=== PATIENT | male | born 1940 | race Caucasian/White ===

== ENCOUNTER → 2016-11-05 | Outpatient (CLI) | payer MEDICARE, OTHER ==
[~2016-11-05] VITALS: Ht 177.8 cm; Wt 89.8 kg
[~2016-11-05] MED LIST: ASPI325T PO; LEVO88TA3 PO; LIPI20TA PO; MIDAZOLAM INJ 2 MG/2 ML VIAL (J2250) As Ordered ONE; NS 1,000 ML IV SCH; PLAV75TA38 PO; fentaNYL 100 MCG/2 ML INJECTION (J3010) As Ordered ONE
--- NOTE | 2016-11-05 08:56 | ROOR ---
Patient Name: Tiago Simmons Procedure Date: 11/05/2016 8:32 AM Date of : 1940 Age: 76 Room: [facility] Gender: Male Note Status: Finalized Procedure: Colonoscopy Indications: High risk colon cancer surveillance: Personal history of colonic polyps, Last colonoscopy: October 2013 Providers: Van BABIN MD Referring MD: Lidia Tipton DO Requesting Provider: Medicines: Fentanyl 100 micrograms IV, Midazolam 4 mg IV Complications: No immediate complications. Procedure: Pre-Anesthesia Assessment: - The heart rate, respiratory rate, oxygen saturations, blood pressure, adequacy of pulmonary ventilation, and response to care were monitored throughout the procedure. The Colonoscope was introduced through the anus and advanced to the cecum, identified by appendiceal orifice and ileocecal valve. The colonoscopy was performed without difficulty. The patient tolerated the procedure well. The quality of the bowel preparation was adequate. Findings: The perianal and digital rectal examinations were normal. (EXAM: Complete, PREP:Adequate) The entire examined colon appeared normal on direct and retroflexion views. Impression: - (EXAM: Complete, PREP:Adequate) - The entire examined colon is normal on direct and retroflexion views. - No specimens collected. Recommendation: - Repeat colonoscopy in 5 years for adenoma surveillance. Van Babin MD Van BABIN MD 11/05/2016 8:55:37 AM This report has been signed electronically. Number of Addenda: 0 Note Initiated On: 11/05/2016 8:32 AM Estimated Blood Loss: Estimated blood loss: none.
[2016-11-05 09:30] VITALS: BP 151/74
== END | disposition home or self-care (01) ==
LOC: M OPP 07:02
PROVIDERS: ATTEND Internal Medicine Gastroenterology
DX: Z12.11 Encounter for screening for malignant neoplasm of colon (principal); Z86.010 Personal history of colon polyps; E07.9 Disorder of thyroid, unspecified
CPT/HCPCS: G0105; J2250; J3010

== ENCOUNTER → 2016-12-05 | Outpatient (REF) | payer MEDICARE ==
[~2016-12-05] MED LIST changes: -MIDAZOLAM INJ 2 MG/2 ML VIAL (J2250) As Ordered ONE; -NS 1,000 ML IV SCH; -fentaNYL 100 MCG/2 ML INJECTION (J3010) As Ordered ONE
== END ==
LOC: M SMT 17:13
PROVIDERS: ATTEND Nurse Practitioner Family
DX: R35.0 Frequency of micturition (principal)
CPT/HCPCS: 51798; 81001; 87086; G0463

== ENCOUNTER → 2017-07-18 | Outpatient (CLI) | payer MEDICARE, OTHER ==
[~2017-07-18] MED LIST changes: +PLAV1TAB2 PO; -PLAV75TA38 PO
--- NOTE | 2017-07-18 12:46 | REP ---
DUPLEX CAROTID SONOGRAPHY: HISTORY: Occlusion or stenosis bilateral carotid arteries. FINDINGS: Antegrade flow is observed in the left vertebral artery. Flow could not be confirmed in the right vertebral artery. RIGHT CAROTID: The right common carotid artery shows mild diffuse intimal thickening. There is mild mixed plaquing in the right carotid bulb and proximal ECA. A patent right ICA stent is seen. Velocity Chart Right Carotid: PSV EDV Right CCA 85 cm/s Right ICA 66 cm/s 29 cm/s Right ECA 63 cm/s Right ICA/CCA ratio normal 1.1. IMPRESSION: 16-49% category narrowing in the proximal ICA. Patent right ICA stent noted. LEFT CAROTID: The left common carotid artery shows mild diffuse intimal thickening. There is mixed plaquing in the bulb and proximal ICA on the left side. Significant plaquing is seen in the proximal ICA with stenosis. Velocity Chart Left Carotid: PSV EDV Left CCA 61 cm/s Left ICA 208 cm/s 64 cm/s Left ECA 68 cm/s Left ICA/CCA ratio elevated 2.9 IMPRESSION: 80-99% category narrowing of the left proximal ICA probably near the lower end of this range. Patent left ICA stent with moderate plaquing and stenosis in the proximal ICA. Systolic velocities have not increased significantly since the prior study in the left carotid done February 27, 2016. Signed by Claudy Larios MD 07/18/2017 05:09 P
== END ==
LOC: M RAD 11:14
DX: I65.23 Occlusion and stenosis of bilateral carotid arteries (principal)

== ENCOUNTER → 2018-02-24 | Outpatient (CLI) | payer MEDICARE, OTHER | LOC: M RAD 10:26 | DX: I65.23 Occlusion and stenosis of bilateral carotid arteries (principal) | CPT/HCPCS: 93880 ==

== ENCOUNTER → 2018-08-01 | Outpatient (CLI) | payer MEDICARE, OTHER ==
[2018-08-01 14:58] LABS: CREATININE FOR GFR 1.42 MG/DL (0.70-1.30); GLOMERULAR FILTRATION RATE 51.5 (>42)
[2018-08-01 14:58] LABS: BLOOD UREA NITROGEN 30 MG/DL (7-18)
== END ==
LOC: M LAB 13:48
DX: M54.5 Low back pain (principal)
CPT/HCPCS: 82565

== ENCOUNTER → 2018-08-11 | Outpatient (CLI) | payer MEDICARE, OTHER ==
[~2018-08-11] MED LIST changes: -ASPI325T PO; -LEVO88TA3 PO; -LIPI20TA PO; -PLAV1TAB2 PO; +PROHANCE 279.3MG/ML 5ML VIAL (A9576) As Ordered
== END ==
LOC: M RAD 16:35
DX: M51.26 Other intervertebral disc displacement, lumbar region (principal); Z85.118 Personal history of other malignant neoplasm of bronchus and lung; M48.061 Spinal stenosis, lumbar region without neurogenic claudication
CPT/HCPCS: A9576

== ENCOUNTER → 2018-08-27 | Outpatient (CLI) | payer MEDICARE, OTHER | LOC: M RAD 14:16 | DX: I65.23 Occlusion and stenosis of bilateral carotid arteries (principal) | CPT/HCPCS: 93880 ==

== ENCOUNTER → 2019-02-18 | Outpatient (CLI) | payer MEDICARE, OTHER ==
[~2019-02-18] MED LIST changes: +ASPI-1 PO; +E-Z-GAS II EFFERVESCENT PACKET (SODIUM BICARB./CITRIC ACID/SIMETHICONE) As Ordered ONE; +E-Z-HD 98% w/w 340GM SUSP BTL As Ordered ONE; +E-Z-PAQUE 96% w/w SUSP 176GM BTL As Ordered ONE; +LEVO88TA3 PO; +LIPI20TA PO; +PLAV1TAB2 PO; -PROHANCE 279.3MG/ML 5ML VIAL (A9576) As Ordered
--- NOTE | 2019-02-18 16:38 | REP ---
Examination Requested: Esophagram Barium Swallow Reason For Exam/Comment: Esophageal dysphasia Esophagram: The procedure was performed by TANNER Cruz, under the direct supervision of Dr. Larios. The images were reviewed with Dr. Larios. A single PA chest x-ray is submitted as a ball thread machine tender film. Demonstrating a postsurgical linear density in the right servando hilar area, corresponding to a previous area of abnormality on the chest x-ray dated 01/26/2016. Lateral and AP projections of the oral and pharyngeal cavity demonstrates multiple surgical clips as well as bilateral carotid stents. Liquid barium was given in the erect position. 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 Distal to the stricture esophageal transport is efficient and there is no esophagitis or mucosal ring noted. There is no hiatal hernia noted. Gastroesophageal reflux is not appreciated throughout the course of this exam. Impression: 1. 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 0.7 minutes of fluoroscopy time was utilized for this procedure. Reviewed by TANNER Rai 02/18/2019 03:52 P Electronically Signed by Claudy Larios MD 02/18/2019 04:28 P
== END ==
LOC: M RAD 09:14
PROVIDERS: ATTEND Specialist
DX: R13.10 Dysphagia, unspecified (principal); K22.2 Esophageal obstruction

== ENCOUNTER → 2019-08-25 | Outpatient (CLI) | payer MEDICARE, OTHER ==
[~2019-08-25] MED LIST changes: -E-Z-GAS II EFFERVESCENT PACKET (SODIUM BICARB./CITRIC ACID/SIMETHICONE) As Ordered ONE; -E-Z-HD 98% w/w 340GM SUSP BTL As Ordered ONE; -E-Z-PAQUE 96% w/w SUSP 176GM BTL As Ordered ONE
--- NOTE | 2019-08-25 14:45 | REP ---
CAROTID ULTRASOUND: Real-time ultrasound evaluation and duplex Doppler interrogation of the bilateral extracranial carotid vasculature is performed. Patient has bilateral stents in the internal carotid arteries. There is narrowing and elevated peak systolic velocity in the left internal carotid artery with elevated ICA to CC ratio, consistent with stenosis, likely greater than 70% given the degree of elevation of the peak systolic velocity and ratio. There is no evidence of hemodynamically significant stenosis of the right internal carotid artery with luminal narrowing less than 50%. There is normal direction of flow in the left vertebral artery. Right vertebral artery is not visualized. RIGHT LEFT Peak systolic velocity ICA 95.3 cm/s 314.0 cm/s End diastolic velocity ICA 28.7 cm/s 78.0 cm/s Peak systolic velocity CCA 112.0 cm/s 91.6 cm/s Peak systolic velocity ECA 127.0 cm/s 135.0 cm/s ICA/CCA ratio 1.05 4.56 IMPRESSION: Bilateral ICA stents with luminal narrowing in the right ICA less than 50% and findings suggestive of stenosis in the left ICA greater than 70%. Electronically Signed by Gama Zelaya MD 08/26/2019 10:33 A
== END ==
LOC: M RAD 12:59
PROVIDERS: ATTEND Neurological Surgery
DX: I65.23 Occlusion and stenosis of bilateral carotid arteries (principal); Z95.828 Presence of other vascular implants and grafts

== ENCOUNTER → 2019-09-09 | Outpatient (CLI) | payer MEDICARE, OTHER ==
[2019-09-09 13:06] LABS: CREATININE FOR GFR 1.42 MG/DL (0.70-1.30); GLOMERULAR FILTRATION RATE 51.3 (>42)
== END ==
LOC: M LAB 11:36
PROVIDERS: ATTEND Surgery Vascular Surgery
DX: I65.23 Occlusion and stenosis of bilateral carotid arteries (principal)

== ENCOUNTER → 2019-09-14 | Outpatient (CLI) | payer MEDICARE, OTHER ==
--- NOTE | 2019-09-14 12:53 | REP ---
Extracranial MRA: 09/14/2019. Indication: Carotid stenosis. Comparison: CTA dated 01/08/2014. Technique: [id number] imaging of the extracranial carotid and vertebral arteries were performed with and without Gadolinium. Findings: Evaluation of the internal carotid arteries is suboptimal secondary to susceptibility artifact associated with the carotid stents. The right vertebral artery is occluded. The left vertebral artery is patent without significant stenosis. The great vessels originate in expected anatomic fashion from the aortic arch. Impression: Suboptimal evaluation of the internal carotid arteries. Conventional angiography is recommended. Occluded right vertebral artery. Electronically Signed by Jaun Merritt DO 09/14/2019 12:45 P
== END ==
LOC: M RAD 10:49
PROVIDERS: ATTEND Nurse Practitioner
DX: I65.23 Occlusion and stenosis of bilateral carotid arteries (principal); N28.1 Cyst of kidney, acquired; N18.3 Chronic kidney disease, stage 3 (moderate); N40.1 Benign prostatic hyperplasia with lower urinary tract symptoms
CPT/HCPCS: 70549; 76775; 76857; A9576

== ENCOUNTER → 2019-09-14 | Outpatient (CLI) | payer MEDICARE, OTHER ==
[~2019-09-14] MED LIST changes: +PROHANCE 279.3MG/ML 15ML VIAL (A9576) As Ordered ONE
--- NOTE | 2019-09-14 13:50 | REP ---
RENAL ULTRASOUND: Real-time sonographic of the kidneys performed. Kidneys are normal in size and echotexture, right kidney measuring 10.0 x 6.0 x 4.9 cm and left kidney 10.5 x 3.9 x 5.0 cm. No hydronephrosis is seen bilaterally. There is a 1 cm cyst in the mid right kidney medially. No other abnormalities are seen. IMPRESSION: No hydronephrosis. 1 cm cyst mid right kidney. Electronically Signed by Gama Zelaya MD 09/14/2019 03:54 P
--- NOTE | 2019-09-14 13:54 | REP ---
BLADDER ULTRASOUND: Real-time sonographic evaluation of the bladder performed. The bladder measures 10.4 x 9.7 x 7.2 cm for a total volume of 474 mL. No mass or calculus is seen. There are bilateral ureteral jets in the urinary bladder with Doppler color evaluation. Prostate is enlarged and measures 5.5 x 5.1 x 5.5 cm for a total volume of 81 mL. Postvoid residual is 61 mL, which is 13% of the original volume. IMPRESSION: No bladder mass or calculus. Postvoid residual 13% as discussed above. Enlarged prostate. Electronically Signed by Gama Zelaya MD 09/14/2019 03:54 P
== END ==
LOC: M RAD 10:55
PROVIDERS: ATTEND Internal Medicine Nephrology
DX: N28.1 Cyst of kidney, acquired (principal); N18.3 Chronic kidney disease, stage 3 (moderate); N40.1 Benign prostatic hyperplasia with lower urinary tract symptoms

== ENCOUNTER → 2019-10-02 | Outpatient (CLI) | payer MEDICARE, OTHER ==
[~2019-10-02] MED LIST changes: -PROHANCE 279.3MG/ML 15ML VIAL (A9576) As Ordered ONE
--- NOTE | 2019-10-02 12:47 | REP ---
Clinical: Preoperative assessment. Technique: PA and lateral. Comparison: 06/19/2016. Findings: Area of linear scarring involving the right upper lobe is again noted and similar to 06/19/2016. Mediastinum and cardiac silhouette are within normal limits. Remainder of lung guevara are clear. No acute consolidation, effusion, or pneumothorax. Skeletal structures are intact. Impression: Chronic linear scarring in the right upper lung zone. No obvious acute process. Electronically Signed by Erik Cifuentes MD 10/02/2019 12:39 P
[2019-10-02 12:58] LABS: APPEARANCE, URINE CLEAR (CLEAR); BACTERIA, URINE AUTO NEGATIVE (NEGATIVE); BILIRUBIN, URINE AUTO NEGATIVE (NEGATIVE); BLOOD, URINE BLOOD 1+ (NEGATIVE); COLOR, URINE STRAW (YELLOW); GLUCOSE, URINE (UA) AUTO NEGATIVE (NEGATIVE); KETONE, URINE AUTO NEGATIVE (NEGATIVE); LEUKOCYTE ESTERASE, URINE AUTO NEGATIVE (NEGATIVE); NITRITE, URINE AUTO NEGATIVE (NEGATIVE); PROTEIN, URINE AUTO NEGATIVE (NEGATIVE); RBC, URINE AUTO 1 /HPF (0-3); SPECIFIC GRAVITY URINE AUTO 1.011 (1.002-1.035); SQUAMOUS EPITHELIAL CELL UR AU 0 /HPF (0-6); UROBILINOGEN, URINE AUTO 0.2 mg/dL (0.0-2.0); WBC, URINE AUTO 1 /HPF (0-3)
[2019-10-02 12:59] LABS: BASO % 0.5 % (0.0-1.0); EOS # 0.2 10^3/uL (0.0-0.5); EOS % 2.8 % (0.0-3.0); HEMATOCRIT 44.7 % (42.0-52.0); HEMOGLOBIN 14.2 g/dl (13.5-17.5); LYMPH # 1.7 10^3/uL (1.5-5.0); LYMPH % 29.3 % (24.0-44.0); MEAN CORPUSCULAR HGB CONC 31.8 g/dl (32.0-36.5); MEAN CORPUSCULAR VOLUME 91.4 fl (80.0-96.0); MONO # 0.6 10^3/uL (0.0-0.8); MONO % 10.8 % (0.0-5.0); NEUTROPHILS # 3.2 10^3/uL (1.5-8.5); NEUTROPHILS % 56.4 % (36.0-66.0); PLATELET COUNT, AUTOMATED 230 10^3/uL (150-450); RED BLOOD COUNT 4.89 10^6/uL (4.30-6.10); WHITE BLOOD COUNT 5.7 10^3/uL (4.0-10.0)
[2019-10-02 13:10] LABS: INR 1.06; PROTHROMBIN TIME 13.5 SECONDS (11.8-14.0)
[2019-10-02 13:11] LABS: PARTIAL THROMBOPLASTIN TIME 29.7 SECONDS (25.0-38.4)
[2019-10-02 13:21] LABS: ALBUMIN 3.6 GM/DL (3.2-5.2); BILIRUBIN,TOTAL 0.6 MG/DL (0.2-1.0); CALCIUM LEVEL 8.8 MG/DL (8.8-10.2); CREATININE FOR GFR 1.46 MG/DL (0.70-1.30); GLOMERULAR FILTRATION RATE 49.7 (>42); POTASSIUM SERUM 4.5 MEQ/L (3.5-5.1); TOTAL PROTEIN 6.9 GM/DL (6.4-8.2)
--- NOTE | 2019-10-05 | ECGEPIP ---
[facility] Test Date: 2019-10-02 Pat Name: LUIS ALBERTO PASTOR Department: Room: - Gender: Male Tool Room Attendant: : 1940 Requested By: Patricio Sequeira Order Number: [id number] Reading MD: Van Steinberg Measurements Intervals Harrison Rate: 62 P: 64 DE: 221 QRS: -13 QRSD: 140 T: 57 QT: 412 QTc: 420 Interpretive Statements SINUS RHYTHM WITH FIRST DEGREE AV BLOCK LEFT BUNDLE BRANCH BLOCK Similar to tracing done 06-19-16 Electronically Signed on 10-04-2019 23:59:30 EST by Van Steinberg
== END ==
LOC: M LAB 12:02
PROVIDERS: ATTEND Neurological Surgery
DX: Z01.818 Encounter for other preprocedural examination (principal); I65.23 Occlusion and stenosis of bilateral carotid arteries; R91.8 Other nonspecific abnormal finding of lung field; Z79.899 Other long term (current) drug therapy

== ENCOUNTER → 2019-12-10 | Outpatient (REF) | payer MEDICARE, OTHER ==
[2019-12-10 17:50] LABS: FERRITIN 18 NG/ML (26-388); IRON (FE) 87 UG/DL (65-175); PERCENT SATURATION 20.6 % (19.7-50.0); TOTAL IRON BINDING CAPACITY 422 UG/DL (250-450)
[2019-12-10 17:59] LABS: FOLATE > 24.0 NG/ML; VITAMIN B12 LEVEL > 2000 PG/ML
== END ==
LOC: M LAB REF 16:52
PROVIDERS: ATTEND Internal Medicine Nephrology
DX: D64.9 Anemia, unspecified (principal)

== ENCOUNTER 2019-12-30 12:33 | Outpatient (CLI) | payer MEDICARE, OTHER ==
[~2019-12-30] VITALS: Ht 177.8 cm; Wt 92.1 kg
[2019-12-30 12:25] VITALS: BP 140/64
[2019-12-30] MEDS ORDERED: NS 1,000 ML IV SCH (13:00)
[2019-12-30] MEDS ORDERED: diphenhydrAMINE INJ 50MG/ML VIAL (J1200) IV PRN (13:00)
[2019-12-30] MEDS ORDERED: ALBUTEROL SULFATE 2.5 MG/0.5 ML INH NEB SOLN INH PRN (13:00)
[2019-12-30] MEDS ORDERED: EPINEPHrine INJ 1 MG/ML 1ML VIAL IM PRN (13:00)
[2019-12-30] MEDS ORDERED: methylPREDNISolone INJ 125 MG/2 ML VIAL (J2930) IV PRN (13:00)
[2019-12-30] MEDS ORDERED: FERRIC CARBOXYMALTOSE INJ 750 MG in NS 250 ML IV ONE (13:30)
[2019-12-30 14:30] VITALS: BP 153/69
== END 2019-12-30 14:30 | disposition home or self-care (01) ==
LOC: M INFU 12:33
PROVIDERS: ATTEND Internal Medicine Nephrology
DX: D50.9 Iron deficiency anemia, unspecified (principal)
CPT/HCPCS: 96361; 96365; J1439

== ENCOUNTER 2020-01-06 12:32 | Outpatient (CLI) | payer MEDICARE, OTHER ==
[~2020-01-06] VITALS: Ht 177.8 cm; Wt 92.3 kg
[2020-01-06] MEDS ORDERED: diphenhydrAMINE INJ 50MG/ML VIAL (J1200) IV PRN (12:45)
[2020-01-06] MEDS ORDERED: ALBUTEROL SULFATE 2.5 MG/0.5 ML INH NEB SOLN INH PRN (12:45)
[2020-01-06] MEDS ORDERED: NS 1,000 ML IV SCH (12:45)
[2020-01-06] MEDS ORDERED: methylPREDNISolone INJ 125 MG/2 ML VIAL (J2930) IV PRN (12:45)
[2020-01-06] MEDS ORDERED: EPINEPHrine INJ 1 MG/ML 1ML VIAL IM PRN (12:45)
[2020-01-06] MEDS ORDERED: methylPREDNISolone INJ 125 MG/2 ML VIAL (J2930) IV ONE (12:45)
[2020-01-06 12:54] VITALS: BP 148/72
[2020-01-06] MEDS ORDERED: FERRIC CARBOXYMALTOSE INJ 750 MG in NS 250 ML IV ONE (13:00)
[2020-01-06 14:32] VITALS: BP 156/88
== END 2020-01-06 14:30 | disposition home or self-care (01) ==
LOC: M INFU 12:32
PROVIDERS: ATTEND Internal Medicine Nephrology
DX: D50.9 Iron deficiency anemia, unspecified (principal)
CPT/HCPCS: 96365; J1439

== ENCOUNTER → 2020-03-31 | Outpatient (CLI) | payer MEDICARE, OTHER ==
--- NOTE | 2020-03-31 16:38 | REP ---
DUPLEX CAROTID SONOGRAPHY: HISTORY: Status post internal carotid artery stents times 15 years. Comparison study August 25, 2019. Comparison MR angiography of the carotids September 14, 2019. FINDINGS: Flow could not be identified in the right vertebral artery. Normal antegrade flow is seen in the left vertebral artery. RIGHT CAROTID: There is diffuse intimal thickening and mild plaquing in the distal CCA on the right. Circumferential mixed plaquing is seen in the bulb and proximal ICA. Heavily calcified plaque is seen in the proximal stent. This obscures visualization of color flow. It is difficult to completely exclude a stent stenosis but the stent is patent. Velocity Chart Right Carotid: PSV EDV Right CCA 100 cm/s Right ICA 76 cm/s 24 cm/s Right ECA 106 cm/s Right ICA/CCA ratio normal 0.8. IMPRESSION: Right ICA stent is patent. Less than 50% stenosis by velocity criteria. Fairly extensive calcific plaquing. LEFT CAROTID: There is diffuse intimal thickening and some plaquing in the distal CCA on the left. There is heavy calcific plaquing in the bulb. There is diffuse intimal thickening throughout the stent which is patent. Peak systolic and end diastolic velocities are elevated in the stent in the ICA on the left similar to the prior study. Velocity Chart Left Carotid: PSV EDV Left CCA PSV 75 cm/s Left ICA 228 cm/s 63 cm/s Left ECA 69 cm/s Left ICA/CCA ratio elevated 3.05. Velocities have not increased since the prior study. IMPRESSION: Greater than 70% category narrowing in the left ICA stent by Doppler velocity criteria. Velocities are unchanged from most recent prior study. Electronically Signed by Claudy Larios MD 03/31/2020 05:00 P
== END ==
LOC: M RAD 14:14
PROVIDERS: ATTEND Neurological Surgery
DX: I65.03 Occlusion and stenosis of bilateral vertebral arteries (principal)

== ENCOUNTER → 2020-06-27 | Outpatient (CLI) | payer MEDICARE, OTHER ==
--- NOTE | 2020-07-07 09:17 | REP ---
CAROTID ULTRASOUND HISTORY: Occlusion and stenosis. COMPARISON: 03/31/2020 FINDINGS: Real-time ultrasound evaluation and duplex Doppler interrogation of the extracranial carotid vasculature was performed bilaterally. There are bilateral internal carotid artery stents again noted. Calcified plaque is seen in the proximal right internal carotid artery. The shadowing limits evaluation of this region, and significant stenosis cannot completely be excluded, although normal flow velocities are visualized in the right internal carotid artery. There is significant plaquing and narrowing in the left internal carotid artery, and once again there is elevated peak systolic velocity and ICA to CCA ratio suggesting stenosis in the range of 60-79%, as seen on prior study. There is significant intimal thickening and plaquing in the bilateral common carotid arteries and carotid bulbs. There is normal direction of flow in the left vertebral artery. The right vertebral artery could not be visualized. RIGHT cm/s LEFT cm/s Peak systolic velocity ICA 57.6 243.3 End-diastolic velocity ICA 16.2 69.1 Peak systolic velocity CCA 87.9 67.0 Peak systolic velocity ECA 139.7 81.4 ICA to CCA ratio 0.66 3.63 IMPRESSION: Similar findings to prior exam as discussed in detail above. Bilateral ICA stents noted with intraluminal plaquing and narrowing. Calcific plaque in the proximal right internal carotid artery limits evaluation for underlying stenosis, although normal flow velocities are documented. There are again findings compatible with stenosis of the left ICA 60-79%. MTDD
== END ==
LOC: M RAD 12:12
PROVIDERS: ATTEND Neurological Surgery
DX: I65.23 Occlusion and stenosis of bilateral carotid arteries (principal); Z95.828 Presence of other vascular implants and grafts

== ENCOUNTER → 2020-11-30 | Outpatient (CLI) | payer MEDICARE, OTHER | LOC: M LABSMTC 12:13 | PROVIDERS: ATTEND Otolaryngology | DX: R13.12 Dysphagia, oropharyngeal phase (principal); Z11.52 Encounter for screening for COVID-19 ==

== ENCOUNTER → 2021-01-04 | Outpatient (REF) | payer MEDICARE, OTHER ==
[2021-01-04 18:11] LABS: PERCENT SATURATION 15.6 % (19.7-50.0)
== END ==
LOC: M LAB REF 16:41
PROVIDERS: ATTEND Internal Medicine Nephrology
DX: D50.9 Iron deficiency anemia, unspecified (principal)

== ENCOUNTER 2021-01-13 08:26 | Outpatient (CLI) | payer MEDICARE, OTHER ==
[~2021-01-13] VITALS: Ht 177.8 cm; Wt 92.3 kg
[~2021-01-13 08:26] MED LIST changes: +ALBUTEROL SULFATE 2.5 MG/0.5 ML INH NEB SOLN INH PRN; +EPINEPHrine INJ 1 MG/ML 1ML AMP IM PRN; +FERRIC CARBOXYMALTOSE INJ 750 MG, VIAL MATE ADAPTER 1 EACH in NS 250 ML IV ONE; +NS 1,000 ML IV SCH; +diphenhydrAMINE 50MG/ML VIAL (J1200) IV ONE; +diphenhydrAMINE 50MG/ML VIAL (J1200) IV PRN; +methylPREDNISolone 125MG 2ML VIAL IV PRN
[2021-01-13 09:01] VITALS: BP 106/55
[2021-01-13 10:03] VITALS: BP 160/72
== END 2021-01-13 10:00 | disposition home or self-care (01) ==
LOC: M INFU 08:26
PROVIDERS: ATTEND Internal Medicine Nephrology
DX: D50.9 Iron deficiency anemia, unspecified (principal)
CPT/HCPCS: 96365; J1439

== ENCOUNTER → 2021-01-18 | Outpatient (CLI) | payer MEDICARE, OTHER ==
[~2021-01-18] MED LIST changes: -ALBUTEROL SULFATE 2.5 MG/0.5 ML INH NEB SOLN INH PRN; -EPINEPHrine INJ 1 MG/ML 1ML AMP IM PRN; -FERRIC CARBOXYMALTOSE INJ 750 MG, VIAL MATE ADAPTER 1 EACH in NS 250 ML IV ONE; -NS 1,000 ML IV SCH; -diphenhydrAMINE 50MG/ML VIAL (J1200) IV ONE; -diphenhydrAMINE 50MG/ML VIAL (J1200) IV PRN; -methylPREDNISolone 125MG 2ML VIAL IV PRN
--- NOTE | 2021-01-18 15:59 | REP ---
INDICATION: Assess stenosis TECHNIQUE: Carotid ultrasonography was performed bilaterally FINDINGS: Right: CCA systolic: 103 centimeters/second CCA diastolic: 25.3 centimeters/second ICA systolic: 102 20 m/sec ICA diastolic: 28.2 centimeters/second ICA CCA ratio: 1.0 Left: CCA systolic: 91.3 centimeters/second CCA diastolic: 12.4 centimeters/second ICA systolic: 213.0 centimeters/second ICA diastolic: 32.9 centimeters/second ICA CCA ratio: 2.3 Vertebral artery: Right: Not seen left: Antegrade IMPRESSION: According to the SRU criteria there is a 50-69% stenosis in the left internal carotid artery. <Electronically signed by Adebayo Edouard > 01/18/21 [id number]
== END ==
LOC: M RAD 12:31
PROVIDERS: ATTEND Neurological Surgery
DX: I65.22 Occlusion and stenosis of left carotid artery (principal)

== ENCOUNTER 2021-01-20 08:08 | Outpatient (CLI) | payer MEDICARE, OTHER ==
[~2021-01-20] VITALS: Ht 208.3 cm; Wt 92.3 kg
[~2021-01-20 08:08] MED LIST changes: +ALBUTEROL SULFATE 2.5 MG/0.5 ML INH NEB SOLN INH PRN; +EPINEPHrine INJ 1 MG/ML 1ML AMP IM PRN; +FERRIC CARBOXYMALTOSE INJ 750 MG, VIAL MATE ADAPTER 1 EACH in NS 250 ML IV ONE; +NS 1,000 ML IV SCH; +diphenhydrAMINE 50MG/ML VIAL (J1200) IV ONE; +diphenhydrAMINE 50MG/ML VIAL (J1200) IV PRN; +methylPREDNISolone 125MG 2ML VIAL IV PRN
[2021-01-20 08:10] VITALS: BP 127/56
[2021-01-20 08:52] LABS: HEMATOCRIT 38.9 % (42.0-52.0); HEMOGLOBIN 12.1 g/dl (13.5-17.5)
[2021-01-20 09:13] LABS: PERCENT SATURATION 21.6 % (19.7-50.0)
[2021-01-20 10:15] VITALS: BP 124/62
== END 2021-01-20 10:15 | disposition home or self-care (01) ==
LOC: M INFU 08:08
PROVIDERS: ATTEND Internal Medicine Nephrology
DX: D50.9 Iron deficiency anemia, unspecified (principal)
CPT/HCPCS: 36415; 82728; 83550; 85014; 85018; 96365; 96366; J1439

== ENCOUNTER → 2021-07-24 | Outpatient (CLI) | payer MEDICARE, OTHER ==
[~2021-07-24] MED LIST changes: -ALBUTEROL SULFATE 2.5 MG/0.5 ML INH NEB SOLN INH PRN; -EPINEPHrine INJ 1 MG/ML 1ML AMP IM PRN; -FERRIC CARBOXYMALTOSE INJ 750 MG, VIAL MATE ADAPTER 1 EACH in NS 250 ML IV ONE; -NS 1,000 ML IV SCH; -diphenhydrAMINE 50MG/ML VIAL (J1200) IV ONE; -diphenhydrAMINE 50MG/ML VIAL (J1200) IV PRN; -methylPREDNISolone 125MG 2ML VIAL IV PRN
--- NOTE | 2021-07-24 15:43 | REP ---
INDICATION: Assess stenosis TECHNIQUE: Carotid ultrasonography was performed bilaterally FINDINGS: Right: CCA systolic: 89.5 centimeters/second CCA diastolic: 23.1 centimeters/second ICA systolic: 67.4 centimeters/second ICA diastolic: 20.1 centimeters/second ICA CCA ratio: 0.75 Left: CCA systolic: 79.2 centimeters/second CCA diastolic: 17.0 centimeters/second ICA systolic: 308.5 centimeters/second ICA diastolic: 79.0 centimeters/second ICA CCA ratio: 3.9 Vertebral artery: Right: Not visualized left: Antegrade flow There is significant echogenic material seen along the carotid arterial sellers which cast acoustic shadows. A stent is seen in the left internal carotid artery IMPRESSION: According to the SRU criteria there is a greater than 70% stenosis of the left internal carotid artery. There is less than 50% stenosis of the right internal carotid artery. <Electronically signed by Adebayo Edouard > 07/24/21 [id number]
== END ==
LOC: M RAD 12:26
PROVIDERS: ATTEND Neurological Surgery
DX: I65.23 Occlusion and stenosis of bilateral carotid arteries (principal); Z95.828 Presence of other vascular implants and grafts

== ENCOUNTER → 2021-08-16 | Outpatient (REF) | payer MEDICARE, OTHER | LOC: M LAB REF 13:10 | PROVIDERS: ATTEND Nurse Practitioner Family | DX: N18.31 Chronic kidney disease, stage 3a (principal) ==

== ENCOUNTER → 2021-09-18 | Outpatient (REF) | payer MEDICARE, OTHER | LOC: M LAB REF 16:20 | PROVIDERS: ATTEND Internal Medicine | DX: E53.8 Deficiency of other specified B group vitamins (principal) ==

== ENCOUNTER → 2021-09-27 | Outpatient (CLI) | payer MEDICARE, OTHER ==
--- NOTE | 2021-09-27 14:25 | REP ---
INDICATION: TESTIS PAIN. COMPARISON: None. TECHNIQUE: Real-time sonographic evaluation of the testicles with Doppler FINDINGS: The right testicle measures 4.3 x 2 x 3.1 cm and the left testicle measures 4.1 x 2.1 x 3.1 cm. The testicular parenchymal echo pattern is symmetrically heterogenous bilaterally. No focal masses are identified. [id number] imaging shows a similar echo pattern. The right testicular RI is 0.85 and left is 0.56. There is a 7 mm sized left-sided spermatocele. There is a moderate septated left-sided hydrocele. There is a minimal right-sided hydrocele. IMPRESSION: Findings as described above. Urological consultation is suggested. Follow-up is recommended. <Electronically signed by Adebayo Edouard > 09/27/21 [id number]
== END ==
LOC: M RAD 13:25
PROVIDERS: ATTEND Internal Medicine
DX: N50.812 Left testicular pain (principal); N43.3 Hydrocele, unspecified; N43.41 Spermatocele of epididymis, single

== ENCOUNTER 2021-12-08 08:58 | Emergency (ER) | payer MEDICARE, OTHER ==
[~2021-12-08] VITALS: Ht 177.8 cm; Wt 91.9 kg
[2021-12-08 13:20] LABS: ALBUMIN 3.9 GM/DL (3.2-5.2); BILIRUBIN,DIRECT 0.1 MG/DL (0.0-0.2); BILIRUBIN,TOTAL 0.4 MG/DL (0.2-1.0)
[2021-12-08] MEDS ORDERED: DOXY-443 PO (13:27)
[2021-12-08] MEDS ORDERED: DIFL200T PO (13:27)
[2021-12-08 13:37] VITALS: BP 109/58
== END 2021-12-08 13:44 | disposition home or self-care (01) ==
LOC: M ED 08:58
DX: N49.2 Inflammatory disorders of scrotum (principal); E03.9 Hypothyroidism, unspecified; E78.5 Hyperlipidemia, unspecified; Z85.818 Personal history of malignant neoplasm of other sites of lip, oral cavity, and pharynx; Z86.14 Personal history of Methicillin resistant Staphylococcus aureus infection; Z79.82 Long term (current) use of aspirin; Z79.01 Long term (current) use of anticoagulants; Z87.891 Personal history of nicotine dependence

== ENCOUNTER → 2022-02-12 | Outpatient (CLI) | payer MEDICARE, OTHER ==
[~2022-02-12] MED LIST changes: +DIFL200T PO; +DOXY-443 PO
== END ==
LOC: M WHC 12:14
PROVIDERS: ATTEND Neurological Surgery
DX: I65.23 Occlusion and stenosis of bilateral carotid arteries (principal); Z95.828 Presence of other vascular implants and grafts

== ENCOUNTER → 2022-05-25 | Outpatient (REF) | payer MEDICARE, OTHER | LOC: M SFHCDERM 17:18 | PROVIDERS: ATTEND Nurse Practitioner Family | DX: D23.72 Other benign neoplasm of skin of left lower limb, including hip (principal) ==

== ENCOUNTER → 2022-07-02 | Outpatient (CLI) | payer MEDICARE, OTHER ==
[~2022-07-02] MED LIST changes: +SYNT125T PO
== END ==
LOC: M LABSMTC 10:39
PROVIDERS: ATTEND Anesthesiology
DX: Z01.812 Encounter for preprocedural laboratory examination (principal); Z20.822 Contact with and (suspected) exposure to COVID-19

== ENCOUNTER 2022-07-06 07:38 | Day surgery (SDC) | payer MEDICARE, OTHER ==
[~2022-07-06] VITALS: Ht 175.3 cm; Wt 85.6 kg
[~2022-07-06 07:38] MED LIST changes: +NS 1,000 ML IV ONE
[2022-07-06] MEDS ORDERED: propofoL 200 MG/20 ML VIAL As Ordered ONE (08:35)
[2022-07-06] MEDS ORDERED: LIDOCAINE 2% 100MG/5ML SDV (FOR ANES.) As Ordered ONE (08:35)
[2022-07-06 09:00] VITALS: BP 107/59
== END 2022-07-06 09:31 | disposition home or self-care (01) ==
LOC: M OPP 07:38
PROVIDERS: ATTEND Internal Medicine Gastroenterology
DX: D12.4 Benign neoplasm of descending colon (principal); K92.1 Melena; K64.8 Other hemorrhoids; Z86.010 Personal history of colon polyps; Z79.02 Long term (current) use of antithrombotics/antiplatelets; Z79.82 Long term (current) use of aspirin; Z79.899 Other long term (current) drug therapy; E78.5 Hyperlipidemia, unspecified; E03.9 Hypothyroidism, unspecified; Z85.01 Personal history of malignant neoplasm of esophagus; Z85.828 Personal history of other malignant neoplasm of skin; Z86.14 Personal history of Methicillin resistant Staphylococcus aureus infection; Z85.118 Personal history of other malignant neoplasm of bronchus and lung; Z85.21 Personal history of malignant neoplasm of larynx; Z92.21 Personal history of antineoplastic chemotherapy; Z92.3 Personal history of irradiation

== ENCOUNTER → 2022-08-23 | Outpatient (CLI) | payer MEDICARE, OTHER ==
[~2022-08-23] MED LIST changes: +CLOP75TA99 PO; -NS 1,000 ML IV ONE; -PLAV1TAB2 PO
== END ==
LOC: M RAD 12:21
PROVIDERS: ATTEND Neurological Surgery
DX: I65.23 Occlusion and stenosis of bilateral carotid arteries (principal)

== ENCOUNTER → 2022-12-19 | Outpatient (CLI) | payer MEDICARE, OTHER | LOC: M LABSMTC 10:13 | PROVIDERS: ATTEND Radiology Radiation Oncology | DX: Z01.812 Encounter for preprocedural laboratory examination (principal); Z20.822 Contact with and (suspected) exposure to COVID-19 ==

== ENCOUNTER → 2022-12-31 | Outpatient (CLI) | payer MEDICARE, OTHER | LOC: M LABSMTC 10:36 | PROVIDERS: ATTEND Radiology Radiation Oncology | DX: Z01.812 Encounter for preprocedural laboratory examination (principal); Z20.822 Contact with and (suspected) exposure to COVID-19 ==

== ENCOUNTER → 2023-03-06 | Outpatient (CLI) | payer MEDICARE, OTHER | LOC: M RAD 12:07 | PROVIDERS: ATTEND Neurological Surgery | DX: I65.23 Occlusion and stenosis of bilateral carotid arteries (principal); L56.8 Other specified acute skin changes due to ultraviolet radiation; L57.0 Actinic keratosis ==

== ENCOUNTER → 2023-07-25 | Outpatient (REF) | payer MEDICARE, OTHER | LOC: M SFHCDERM 11:37 | PROVIDERS: ATTEND Nurse Practitioner Family | DX: L98.6 Other infiltrative disorders of the skin and subcutaneous tissue (principal) ==

== ENCOUNTER 2023-09-11 14:24 | Emergency (ER) | payer MEDICARE, OTHER ==
[~2023-09-11] VITALS: Ht 177.8 cm; Wt 92.3 kg
[2023-09-11 18:23] LABS: BASO % 0.3 % (0.0-1.0); EOS # 0.1 10^3/uL (0.0-0.5); EOS % 2.3 % (0.0-3.0); HEMATOCRIT 44.4 % (42.0-52.0); HEMOGLOBIN 14.3 g/dl (13.5-17.5); LYMPH # 1.3 10^3/uL (1.5-5.0); LYMPH % 21.3 % (24.0-44.0); MEAN CORPUSCULAR HEMOGLOBIN 30.4 pg (27.0-33.0); MEAN CORPUSCULAR HGB CONC 32.2 g/dl (32.0-36.5); MEAN CORPUSCULAR VOLUME 94.3 fl (80.0-96.0); MONO # 0.6 10^3/uL (0.0-0.8); MONO % 10.2 % (2.0-8.0); NEUTROPHILS # 3.9 10^3/uL (1.5-8.5); NEUTROPHILS % 65.7 % (36.0-66.0); PLATELET COUNT, AUTOMATED 160 10^3/uL (150-450); RED BLOOD COUNT 4.71 10^6/uL (4.30-6.10)
[2023-09-11] MEDS ORDERED: ISOVUE-370 76% 100ML VIAL As Ordered ONE (18:23)
[2023-09-11 18:40] LABS: PARTIAL THROMBOPLASTIN TIME 30.5 SECONDS (24.8-34.2); PROTHROMBIN TIME 12.9 SECONDS (12.5-14.5)
[2023-09-11 18:58] LABS: BLOOD UREA NITROGEN 32 MG/DL (9-23); CALCIUM LEVEL 8.8 MG/DL (8.3-10.6); CARBON DIOXIDE LEVEL 32 MMOL/L (20-31); CHLORIDE LEVEL 103 MMOL/L (98-107); CREATININE FOR GFR 1.08 MG/DL (0.70-1.30); GLOMERULAR FILTRATION RATE > 60.0 (>35); GLUCOSE, FASTING 82 MG/DL (74-106); POTASSIUM SERUM 4.3 MMOL/L (3.5-5.1); SODIUM LEVEL 138 MMOL/L (136-145)
[2023-09-11 19:00] LABS: THYROID STIMULATING HORMONE 2.023 uIU/ML (0.55-4.78)
[2023-09-11 19:01] LABS: FREE T4 1.11 NG/DL (0.89-1.76)
[2023-09-11 20:09] VITALS: TEMP 98.1
[2023-09-11 20:24] VITALS: O2SAT 93
[2023-09-11 20:31] VITALS: BP 128/70
== END 2023-09-11 21:41 | disposition left against medical advice (07) ==
LOC: M ED 14:24
DX: R51.9 Headache, unspecified (principal); G47.33 Obstructive sleep apnea (adult) (pediatric); C34.90 Malignant neoplasm of unspecified part of unspecified bronchus or lung; I10 Essential (primary) hypertension; E78.5 Hyperlipidemia, unspecified; R00.1 Bradycardia, unspecified; N40.0 Benign prostatic hyperplasia without lower urinary tract symptoms; I44.4 Left anterior fascicular block; I44.0 Atrioventricular block, first degree; Z87.891 Personal history of nicotine dependence; Z91.048 Other nonmedicinal substance allergy status; Z79.899 Other long term (current) drug therapy; Z79.82 Long term (current) use of aspirin; Z79.02 Long term (current) use of antithrombotics/antiplatelets; Z53.9 Procedure and treatment not carried out, unspecified reason
CPT/HCPCS: 36415; 70450; 70496; 70498; 80047; 80048; 84439; 84443; 84484; 85025; 85610; 85730; 93005; 93041; 94760; 99285; Q9967

== ENCOUNTER → 2023-09-16 | Outpatient (CLI) | payer MEDICARE, OTHER | LOC: M RAD 10:39 | PROVIDERS: ATTEND Neurological Surgery | DX: I65.23 Occlusion and stenosis of bilateral carotid arteries (principal); Z95.828 Presence of other vascular implants and grafts ==

== ENCOUNTER → 2023-11-04 | Outpatient (CLI) | payer MEDICARE, OTHER ==
[2023-11-04 17:33] LABS: INR 1.09; PROTHROMBIN TIME 13.8 SECONDS (12.5-14.5)
[2023-11-04 17:34] LABS: PARTIAL THROMBOPLASTIN TIME 30.4 SECONDS (24.8-34.2)
[2023-11-04 17:36] LABS: APPEARANCE, URINE HAZY (CLEAR); BACTERIA, URINE AUTO NEGATIVE (NEGATIVE); BILIRUBIN, URINE AUTO NEGATIVE (NEGATIVE); BLOOD, URINE BLOOD NEGATIVE (NEGATIVE); COLOR, URINE YELLOW (YELLOW); GLUCOSE, URINE (UA) AUTO NEGATIVE (NEGATIVE); KETONE, URINE AUTO NEGATIVE (NEGATIVE); LEUKOCYTE ESTERASE, URINE AUTO NEGATIVE (NEGATIVE); MUCUS, URINE SMALL (NEGATIVE); NITRITE, URINE AUTO NEGATIVE (NEGATIVE); PROTEIN, URINE AUTO NEGATIVE (NEGATIVE); RBC, URINE AUTO 1 /HPF (0-3); SPECIFIC GRAVITY URINE AUTO 1.018 (1.002-1.035); SQUAMOUS EPITHELIAL CELL UR AU 0 /HPF (0-6); UROBILINOGEN, URINE AUTO 0.2 mg/dL (0.0-2.0); WBC, URINE AUTO 1 /HPF (0-3)
[2023-11-04 17:41] LABS: ALKALINE PHOSPHATASE 133 U/L (46-116); ALT/SGPT 33 U/L (7.0-40); AST/SGOT 36 U/L (<34); BILIRUBIN,TOTAL 0.5 MG/DL (0.3-1.2); BLOOD UREA NITROGEN 36 MG/DL (9-23); CALCIUM LEVEL 8.6 MG/DL (8.3-10.6); CARBON DIOXIDE LEVEL 32 MMOL/L (20-31); CHLORIDE LEVEL 104 MMOL/L (98-107); CREATININE FOR GFR 1.07 MG/DL (0.70-1.30); GLOMERULAR FILTRATION RATE > 60.0 (>35); GLUCOSE, FASTING 108 MG/DL (74-106); POTASSIUM SERUM 4.3 MMOL/L (3.5-5.1); SODIUM LEVEL 140 MMOL/L (136-145); TOTAL PROTEIN 6.3 G/DL (5.7-8.2)
[2023-11-04 17:46] LABS: BASO % 0.4 % (0.0-1.0); EOS # 0.2 10^3/uL (0.0-0.5); EOS % 3.6 % (0.0-3.0); HEMATOCRIT 42.1 % (42.0-52.0); HEMOGLOBIN 13.7 g/dl (13.5-17.5); LYMPH # 0.9 10^3/uL (1.5-5.0); LYMPH % 15.7 % (24.0-44.0); MEAN CORPUSCULAR HEMOGLOBIN 30.9 pg (27.0-33.0); MEAN CORPUSCULAR HGB CONC 32.5 g/dl (32.0-36.5); MEAN CORPUSCULAR VOLUME 94.8 fl (80.0-96.0); MONO # 0.5 10^3/uL (0.0-0.8); MONO % 9.1 % (2.0-8.0); NEUTROPHILS % 71.2 % (36.0-66.0); PLATELET COUNT, AUTOMATED 154 10^3/uL (150-450); RED BLOOD COUNT 4.44 10^6/uL (4.30-6.10); WHITE BLOOD COUNT 5.6 10^3/uL (4.0-10.0)
== END ==
LOC: M RAD 15:17
PROVIDERS: ATTEND Neurological Surgery
DX: Z01.818 Encounter for other preprocedural examination (principal); I65.23 Occlusion and stenosis of bilateral carotid arteries; Q28.3 Other malformations of cerebral vessels; I51.7 Cardiomegaly; J98.4 Other disorders of lung; I44.7 Left bundle-branch block, unspecified; R94.31 Abnormal electrocardiogram [ECG] [EKG]; Z13.6 Encounter for screening for cardiovascular disorders; Z79.899 Other long term (current) drug therapy

== ENCOUNTER → 2023-12-12 | Outpatient (REF) | payer MEDICARE, OTHER | LOC: M LAB REF 16:10 | PROVIDERS: ATTEND Nurse Practitioner Adult Health | DX: R07.0 Pain in throat (principal) ==

== ENCOUNTER → 2023-12-24 | Outpatient (CLI) | payer MEDICARE, OTHER | LOC: M RAD 11:10 | PROVIDERS: ATTEND Neurological Surgery | DX: I65.23 Occlusion and stenosis of bilateral carotid arteries (principal) ==

== ENCOUNTER → 2024-04-01 | Outpatient (CLI) | payer MEDICARE, OTHER ==
[~2024-04-01] MED LIST changes: +DOXY-323 PO; -DOXY-443 PO
== END ==
LOC: M RAD 13:58
PROVIDERS: ATTEND Neurological Surgery
DX: I65.23 Occlusion and stenosis of bilateral carotid arteries (principal)

== ENCOUNTER → 2024-04-14 | Outpatient (REF) | payer MEDICARE, OTHER ==
[2024-04-14 19:20] LABS: BLOOD UREA NITROGEN 43 MG/DL (9-23); CALCIUM LEVEL 8.9 MG/DL (8.3-10.6); CARBON DIOXIDE LEVEL 31 MMOL/L (20-31); CHLORIDE LEVEL 104 MMOL/L (98-107); CREATININE FOR GFR 0.99 MG/DL (0.70-1.30); GLOMERULAR FILTRATION RATE > 60.0 (>35); GLUCOSE, FASTING 85 MG/DL (74-106); POTASSIUM SERUM 4.6 MMOL/L (3.5-5.1); SODIUM LEVEL 140 MMOL/L (136-145)
== END ==
LOC: M LAB REF 17:19
PROVIDERS: ATTEND Nurse Practitioner Adult Health
DX: E78.00 Pure hypercholesterolemia, unspecified (principal); N18.31 Chronic kidney disease, stage 3a

== ENCOUNTER → 2024-04-17 | Outpatient (CLI) | payer MEDICARE, OTHER ==
[~2024-04-17] MED LIST changes: +ISOVUE-370 76% 100ML VIAL As Ordered ONE
== END ==
LOC: M RAD 09:46
PROVIDERS: ATTEND Neurological Surgery
DX: Q28.2 Arteriovenous malformation of cerebral vessels (principal)
CPT/HCPCS: 70498; Q9967

== ENCOUNTER → 2024-07-29 | Outpatient (CLI) | payer MEDICARE, OTHER ==
[~2024-07-29] MED LIST changes: -DOXY-323 PO; +DOXY-441 PO; -ISOVUE-370 76% 100ML VIAL As Ordered ONE
[2024-07-29 15:10] LABS: BASO % 0.5 % (0.0-1.0); EOS # 0.2 10^3/uL (0.0-0.5); EOS % 3.3 % (0.0-3.0); HEMATOCRIT 40.9 % (42.0-52.0); HEMOGLOBIN 13.5 g/dl (13.5-17.5); LYMPH # 0.8 10^3/uL (1.5-5.0); MEAN CORPUSCULAR HEMOGLOBIN 30.9 pg (27.0-33.0); MEAN CORPUSCULAR VOLUME 93.6 fl (80.0-96.0); MONO # 0.7 10^3/uL (0.0-0.8); MONO % 12.5 % (2.0-8.0); NEUTROPHILS # 4.1 10^3/uL (1.5-8.5); NEUTROPHILS % 70.5 % (36.0-66.0); PLATELET COUNT, AUTOMATED 137 10^3/uL (150-450); RED BLOOD COUNT 4.37 10^6/uL (4.30-6.10); WHITE BLOOD COUNT 5.8 10^3/uL (4.0-10.0)
[2024-07-29 15:12] LABS: APPEARANCE, URINE HAZY (CLEAR); BACTERIA, URINE AUTO NEGATIVE (NEGATIVE); BILIRUBIN, URINE AUTO NEGATIVE (NEGATIVE); BLOOD, URINE BLOOD NEGATIVE (NEGATIVE); COLOR, URINE YELLOW (YELLOW); GLUCOSE, URINE (UA) AUTO NEGATIVE (NEGATIVE); KETONE, URINE AUTO NEGATIVE (NEGATIVE); LEUKOCYTE ESTERASE, URINE AUTO NEGATIVE (NEGATIVE); MUCUS, URINE SMALL (NEGATIVE); NITRITE, URINE AUTO NEGATIVE (NEGATIVE); PROTEIN, URINE AUTO NEGATIVE (NEGATIVE); RBC, URINE AUTO 0 /HPF (0-3); SPECIFIC GRAVITY URINE AUTO 1.025 (1.002-1.035); SQUAMOUS EPITHELIAL CELL UR AU 0 /HPF (0-6); UROBILINOGEN, URINE AUTO 0.2 mg/dL (0.0-2.0); WBC, URINE AUTO 0 /HPF (0-3)
[2024-07-29 15:23] LABS: INR 1.04; PARTIAL THROMBOPLASTIN TIME 29.9 SECONDS (24.8-34.2); PROTHROMBIN TIME 13.3 SECONDS (12.5-14.5)
[2024-07-29 15:55] LABS: ALBUMIN 2.8 G/DL (3.2-5.2); BILIRUBIN,TOTAL 0.5 MG/DL (0.3-1.2); CALCIUM LEVEL 8.9 MG/DL (8.3-10.6); CREATININE FOR GFR 1.43 MG/DL (0.70-1.30); GLOMERULAR FILTRATION RATE 50.3 (>35); TOTAL PROTEIN 5.8 G/DL (5.7-8.2)
== END ==
LOC: M RAD 14:14
PROVIDERS: ATTEND Neurological Surgery
DX: Z01.818 Encounter for other preprocedural examination (principal); Q28.2 Arteriovenous malformation of cerebral vessels; Z79.82 Long term (current) use of aspirin; Z79.890 Hormone replacement therapy; I44.7 Left bundle-branch block, unspecified; R00.1 Bradycardia, unspecified; I65.23 Occlusion and stenosis of bilateral carotid arteries

== ENCOUNTER → 2024-09-23 | Outpatient (CLI) | payer MEDICARE, OTHER | LOC: M RAD 12:20 | PROVIDERS: ATTEND Neurological Surgery | DX: I65.23 Occlusion and stenosis of bilateral carotid arteries (principal) ==

== ENCOUNTER → 2024-10-16 | Outpatient (REF) | payer MEDICARE, OTHER ==
[2024-10-16 18:36] LABS: PERCENT SATURATION 19.8 % (19.7-50.0)
[2024-10-16 18:40] LABS: FERRITIN 16.8 NG/ML (10.5-307.3)
== END ==
LOC: M LAB REF 16:56
PROVIDERS: ATTEND Nurse Practitioner Family
DX: D50.9 Iron deficiency anemia, unspecified (principal)

== ENCOUNTER → 2024-10-20 | Outpatient (CLI) | payer MEDICARE, OTHER | LOC: M LAB 15:18 | PROVIDERS: ATTEND Neurological Surgery | DX: Z53.9 Procedure and treatment not carried out, unspecified reason (principal) ==

== ENCOUNTER → 2024-10-26 | Outpatient (CLI) | payer MEDICARE, OTHER ==
[2024-10-26 14:56] LABS: BASO % 0.4 % (0.0-1.0); EOS # 0.2 10^3/uL (0.0-0.5); EOS % 3.9 % (0.0-3.0); HEMATOCRIT 42.1 % (42.0-52.0); LYMPH # 1.1 10^3/uL (1.5-5.0); LYMPH % 23.8 % (24.0-44.0); MEAN CORPUSCULAR HEMOGLOBIN 31.2 pg (27.0-33.0); MEAN CORPUSCULAR HGB CONC 33.3 g/dl (32.0-36.5); MEAN CORPUSCULAR VOLUME 93.8 fl (80.0-96.0); MONO # 0.6 10^3/uL (0.0-0.8); MONO % 13.6 % (2.0-8.0); NEUTROPHILS # 2.7 10^3/uL (1.5-8.5); NEUTROPHILS % 58.1 % (36.0-66.0); PLATELET COUNT, AUTOMATED 130 10^3/uL (150-450); RED BLOOD COUNT 4.49 10^6/uL (4.30-6.10); WHITE BLOOD COUNT 4.6 10^3/uL (4.0-10.0)
== END ==
LOC: M LAB 14:03
PROVIDERS: ATTEND Neurological Surgery
DX: I65.23 Occlusion and stenosis of bilateral carotid arteries (principal); Q28.2 Arteriovenous malformation of cerebral vessels

== ENCOUNTER → 2024-10-29 | Outpatient (CLI) | payer MEDICARE, OTHER ==
[~2024-10-29] MED LIST changes: +ISOVUE-370 76% 100ML VIAL As Ordered ONE
== END ==
LOC: M RAD 11:23
PROVIDERS: ATTEND Nurse Practitioner Family
DX: I65.23 Occlusion and stenosis of bilateral carotid arteries (principal)
CPT/HCPCS: 70498; Q9967

== ENCOUNTER → 2024-12-28 | Outpatient (REF) | payer MEDICARE, OTHER ==
[~2024-12-28] MED LIST changes: -ISOVUE-370 76% 100ML VIAL As Ordered ONE
[2024-12-28 18:40] LABS: PERCENT SATURATION 23.2 % (19.7-50.0)
[2024-12-28 18:47] LABS: FERRITIN 27.4 NG/ML (10.5-307.3)
== END ==
LOC: M LAB REF 17:25
PROVIDERS: ATTEND Internal Medicine
DX: R10.13 Epigastric pain (principal); D50.9 Iron deficiency anemia, unspecified

== ENCOUNTER → 2024-12-29 | Outpatient (REF) | payer MEDICARE, OTHER ==
[2024-12-29 19:16] LABS: VITAMIN B12 LEVEL 859 PG/ML (211-911)
[2024-12-29 19:20] LABS: FOLATE > 24.0 NG/ML (>5.4)
== END ==
LOC: M LAB REF 18:07
PROVIDERS: ATTEND Nurse Practitioner Family
DX: D51.9 Vitamin B12 deficiency anemia, unspecified (principal)

== ENCOUNTER → 2025-01-14 | Outpatient (CLI) | payer MEDICARE, OTHER | LOC: M RAD 09:32 | PROVIDERS: ATTEND Internal Medicine | DX: R94.5 Abnormal results of liver function studies (principal) ==

== ENCOUNTER → 2025-01-27 | Outpatient (CLI) | payer MEDICARE, OTHER | LOC: M RAD 11:40 | PROVIDERS: ATTEND Neurological Surgery | DX: I65.23 Occlusion and stenosis of bilateral carotid arteries (principal) ==

== ENCOUNTER 2025-05-03 08:42 | Day surgery (SDC) | payer MEDICARE, OTHER ==
[~2025-05-03] VITALS: Ht 172.7 cm; Wt 86.5 kg
[~2025-05-03 08:42] MED LIST changes: +ATOR40TA75 PO; +PANT40GR PEG; +PERF3DRO OU; +TREL1AER; +[UNRECOGNIZED DRUG - CODE]
[2025-05-03 10:08] VITALS: TEMP 97.1
[2025-05-03 10:30] VITALS: BP 108/55; O2SAT 98
== END 2025-05-03 10:57 | disposition home or self-care (01) ==
LOC: M OPP 08:42
PROVIDERS: ATTEND Internal Medicine Gastroenterology
DX: D01.0 Carcinoma in situ of colon (principal); K64.8 Other hemorrhoids; Z86.0100 Personal history of colon polyps, unspecified; R19.4 Change in bowel habit; G47.30 Sleep apnea, unspecified; Z79.82 Long term (current) use of aspirin; Z79.02 Long term (current) use of antithrombotics/antiplatelets; Z79.51 Long term (current) use of inhaled steroids; Z79.899 Other long term (current) drug therapy; J44.9 Chronic obstructive pulmonary disease, unspecified

== ENCOUNTER → 2025-08-20 | Outpatient (CLI) | payer MEDICARE, OTHER ==
[~2025-08-20] MED LIST changes: +PROHANCE 279.3MG/ML 15ML VIAL As Ordered ONE; +PROHANCE 279.3MG/ML 5ML VIAL As Ordered ONE
== END ==
LOC: M RAD 14:18
PROVIDERS: ATTEND Neurological Surgery
DX: I65.23 Occlusion and stenosis of bilateral carotid arteries (principal); Q28.2 Arteriovenous malformation of cerebral vessels
CPT/HCPCS: 70553; 93880; A9579